=== PATIENT | male | born 1980 | race Two or more races ===

== ENCOUNTER 2019-03-26 16:10 | Emergency (ER) | payer MEDICAID ==
[~2019-03-26] VITALS: Ht 177.8 cm; Wt 108.9 kg
[2019-03-26 16:17] VITALS: BP 134/88
--- NOTE | 2019-03-26 16:20 | NUR ---
ED Nurse Note: Patient walked into ED c/o laceration on the left forearm that happened 1 hour prior to arrival to ED, patient reports he got laceration by an electrical wire cable. bleeding is controlled. patient reports pain 5/10. patient is alert awake x4 ambulatory, breathing unlabored and even, speaking in full sentences.
[2019-03-26] MEDS ORDERED: Tetanus/Diptheria/Pertussis IM ONE (16:30)
[2019-03-26] MEDS ORDERED: CEPHALEXIN500 MG ORAL (16:52)
[2019-03-26] MEDS ORDERED: IBU800 MG PO (16:52)
--- NOTE | 2019-03-26 16:52 | Emergency Room Report ---
History of Present Illness General Chief Complaint: Laceration Source: Patient (Sue Jarquin) Present Illness HPI 38-year-old male with no symptom past medical history here complaining of a laceration on left forearm that happened today as he was working with [employer] wire. Patient reports that he got a cut from the electric wire. Reports that there was no foreign body when the incident occurred. Is able to flex and extend his forearm. Has full range of motion's. Denies any motor or sensory deficits. No signs of motor or sensory deficits noted. Denies all other injuries, reports that he is not up-to-date with his tetanus shot. Minimal bleeding noted however a deep laceration noted on the left palmar side of forearm. Denies chest pain, shortness of breath, fever and chills, abdominal pain, nausea vomiting, no other associated symptoms. Has taken ibuprofen for symptom relief. (Sue Jarquin) Allergies: Coded Allergies: No Known Allergies (Unverified , 03/26/19) Patient History Past Medical History: see triage record Past Surgical History: unable to obtain Pertinent Family History: none Immunizations: other - Tdap given today Reviewed Nursing Documentation: PMH: Agreed; PSxH: Agreed (Sue Jarquin) Nursing Documentation-PMH Past Medical History: No Stated History (Sue Jarquin) Review of Systems All Other Systems: negative except mentioned in HPI (Sue Jarquin) Physical Exam Vital Signs Date Time Temp Pulse Resp B/P (MAP) Pulse Ox O2 Delivery O2 Flow Rate FiO2 03/26/19 16:17 98.2 98 18 134/88 (103) 99 Room Air Sp02 EP Interpretation: reviewed, normal General Appearance: no apparent distress, alert, GCS 15, non-toxic Head: normocephalic, atraumatic Eyes: bilateral eye normal inspection, bilateral eye PERRL ENT: hearing grossly normal, normal pharynx, no angioedema, normal voice Neck: full range of motion, supple/symm/no masses Respiratory: chest non-tender, lungs clear, normal breath sounds, no rhonchi, no wheezing, speaking full sentences Cardiovascular #1: regular rate, rhythm, no edema, no murmur Cardiovascular #2: 2+ radial (R), 2+ radial (L) Gastrointestinal: normal bowel sounds, non tender, soft, non-distended, no guarding, no rebound Rectal: deferred Genitourinary: no CVA tenderness Musculoskeletal: back normal, digits/nails normal, gait/station normal, non- tender, no calf tenderness, pelvis stable Neurologic: alert, oriented x3, responsive, motor strength/tone normal, sensory intact, speech normal Psychiatric: normal inspection, judgement/insight normal Skin: laceration - Deep laceration into the muscle left forearm on the palmar side Lymphatic: normal inspection, no adenopathy (Sue Jarquin) Procedures Laceration/Wound Repair Laceration/Wound Repair : Consent: Verbal Wound Location: upper extremity - Left forearm Wound's Depth, Shape: into muscle Wound Length (cm): 2 Wound Explored: contaminated Irrigated w/ Saline (ccs): 10 Betadine Prep?: No Anesthesia: Lidocaine w/ Epi Volume Anesthetic (ccs): 7 Wound Repaired With: sutures Suture Size/Type: 4:0, proline Number of Sutures: 10 Layer Closure?: Yes Sterile Dressing Applied?: Yes Splint Applied?: No Sling Applied?: No Patient Tolerated: Well Complications: None (Sue Jarquin) Medical Decision Making PA Attestation All diagnoses and treatment plans were reviewed and discussed with my supervising physician Dr. Nogueira (Sue Jarquin) Diagnostic Impression: Primary Impression: Laceration of forearm without foreign body ER Course 38-year-old male with no symptom past medical history here complaining of a laceration on left forearm that happened today as he was working with [employer] wire. Patient reports that he got a cut from the electric wire. Reports that there was no foreign body when the incident occurred. Is able to flex and extend his forearm. Has full range of motion's. Denies any motor or sensory deficits. No signs of motor or sensory deficits noted. Denies all other injuries, reports that he is not up-to-date with his tetanus shot. Minimal bleeding noted however a deep laceration noted on the left palmar side of forearm. Denies chest pain, shortness of breath, fever and chills, abdominal pain, nausea vomiting, no other associated symptoms. Has taken ibuprofen for symptom relief. Ddx considered but are not limited to : Superficial laceration, deep laceration , tendon involvement with laceration, laceration with foreign body Vital signs: are WNL, pt. is afebrile H&PE are most consistent with: Deep laceration left forearm ORDERS: Left forearm x-ray, Keflex, ibuprofen ED INTERVENTIONS: Wound closure, Tdap DISCHARGE: At this time pt. is stable for d/c to home. Will provide printed patient care instructions, and any necessary prescriptions. Care plan and follow up instructions have been discussed with the patient prior to discharge. Sutures in days. If worsening symptoms return to emergency room sooner. (Sue Jarquin) Other X-Ray Diagnostic Results Other X-Ray Diagnostic Results : X-Ray ordered: Left forearm # of Views/Limited Vs Complete: 2 View Indication: Pain EP Interpretation: Yes PA Xray: Interpretation reviewed, by supervising MD, and agrees with findings. Interpretation: no dislocation, no soft tissue swelling, no fractures, other - No foreign body Impression: No acute disease Electronically Signed by: Sue Lopez PA-C (Sue Jarquin) Other X-Ray Diagnostic Results : Electronically Signed by: Delvin Gallegos documentation of Xray reviewed by me and is accurate, Joe Nogueira MD (Joe Nogueira MD) Last Vital Signs Date Time Temp Pulse Resp B/P (MAP) Pulse Ox O2 Delivery O2 Flow Rate FiO2 03/26/19 16:17 98.2 98 18 134/88 (103) 99 Room Air (Sue Jarquin) Disposition: HOME, SELF-CARE Condition: Stable Scripts Ibuprofen (Ibu) 800 Mg Tablet 800 MG PO TID, #21 TAB Prov: Sue Jarquin 03/26/19 Cephalexin* (KEFLEX*) 500 Mg Capsule 500 MG ORAL EVERY 6 HOURS for 7 Days, #28 CAP Prov: Sue Jarquin 03/26/19 Patient Instructions: Laceration Care, Adult Additional Instructions: Take medication as directed, follow-up with your primary care provider, sutures to be removed in 7 to 10 days. If worsening symptoms return to the emergency room. Sue Jarquin Mar 26, 2019 16:51 Joe Nogueira MD Mar 27, 2019 01:21
[2019-03-26 17:34] VITALS: BP 134/88
--- NOTE | 2019-03-26 17:34 | NUR ---
ER DISCHARGE NOTE: Patient is cleared to be discharged per BONNIE NOLAN, pt is aox4, on room air, with stable vital signs. pt was given dc and prescription instructions, pt was able to verbalize understanding, pt id band removed without complications. pt is able to ambulate with steady gait. pt took all belongings.
--- NOTE | 2019-03-27 09:57 | Diagnostic Imaging Report ---
INDICATION: Laceration, foreign body TECHNIQUE: XRAY Forearm 2v L Multiple views of the None were obtained COMPARISON: None FINDINGS: There is no acute fracture or dislocation. Joint spaces are maintained. Mild soft tissue swelling of the forearm. No radiopaque foreign body identified. IMPRESSION: No acute fracture, dislocation, or radiopaque foreign body.
== END 2019-03-26 17:34 | disposition home or self-care (01) ==
LOC: EMR 16:30
DX: S51.812A Laceration without foreign body of left forearm, initial encounter (principal); Z23 Encounter for immunization; W45.8XXA Other foreign body or object entering through skin, initial encounter; Y92.9 Unspecified place or not applicable
CPT/HCPCS: 12031; 73090; 90471; 90715; Z7502; 99283

== ENCOUNTER 2019-04-04 21:01 | Emergency (ER) | payer MEDICAID ==
[~2019-04-04] VITALS: Ht 180.3 cm; Wt 108.9 kg
[~2019-04-04 21:01] MED LIST: CEPHALEXIN500 MG ORAL; IBU800 MG PO
[2019-04-04] MEDS ORDERED: NKM (21:08)
[2019-04-04 21:10] VITALS: BP 130/86
--- NOTE | 2019-04-04 21:10 | NUR ---
ED Nurse Note: pt walked in to ED for suture removal to left forearm area. pt states that he had stiches put in 10 days ago. pt is alert x4.
--- NOTE | 2019-04-04 21:15 | NUR ---
ED Nurse Note: ERMD at bedside removing stitches for pt
[2019-04-04 21:25] VITALS: BP 136/79
--- NOTE | 2019-04-04 21:25 | NUR ---
ER DISCHARGE NOTE: Patient is cleared to be discharged per ERMD, pt is aox4, on room air, with stable vital signs. pt was given dc instructions, pt was able to verbalize understanding, pt id band removed without complications. pt is able to ambulate with steady gait. pt took all belongings.
--- NOTE | 2019-04-04 21:28 | Emergency Room Report ---
History of Present Illness General Chief Complaint: Wound Recheck/Suture Removal Source: Patient Present Illness HPI Patient presents with recheck of his left forearm laceration this happened last week Reports that 1 of the sutures fell out several days ago Denies any fevers denies any chills denies any redness or swelling Allergies: Coded Allergies: No Known Allergies (Unverified , 03/26/19) Patient History Past Medical History: see triage record Reviewed Nursing Documentation: PMH: Agreed; PSxH: Agreed Nursing Documentation-PMH Past Medical History: No Stated History Review of Systems All Other Systems: negative except mentioned in HPI Physical Exam Vital Signs Date Time Temp Pulse Resp B/P (MAP) Pulse Ox O2 Delivery O2 Flow Rate FiO2 04/04/19 21:05 98.1 79 18 138/86 (103) 95 Room Air Sp02 EP Interpretation: reviewed, normal General Appearance: well appearing, no apparent distress Head: normocephalic, atraumatic Eyes: bilateral eye PERRL, bilateral eye EOMI ENT: normal pharynx Respiratory: no respiratory distress, no retraction Musculoskeletal: normal inspection - Full flexion extension intact Neurologic: alert, oriented x3 Skin: other - Sutures are in place in the left forearm at the site of the laceration, starting proximally the second suture from the top does appear to have come out and there is a small dehiscence at that site other sutures are in place Lymphatic: no adenopathy Procedures Laceration/Wound Repair Laceration/Wound Repair : Consent: Verbal Wound Location: upper extremity Wound Length (cm): 2 Wound Explored: clean Betadine Prep?: No Wound Repaired With: Steri-strips Number of Sutures: 1 Layer Closure?: No Progress One suture from the proximal and one suture from the distal aspect of the laceration removed without any complications, one Steri-Strip was applied over the dehisced area and the other sutures are left in place for further healing Medical Decision Making Diagnostic Impression: Primary Impression: Encounter for wound re-check Additional Impression: Dehiscence of closure of skin ER Course Given the history and presentation the area is cleansed and prepped one suture from the top and one suture from the lower aspect is removed patient also had Steri-Strip applied over the dehisced region The other sutures require further healing as removal will likely lead to further dehiscence Patient will require repeat check in the next several days Last Vital Signs Date Time Temp Pulse Resp B/P (MAP) Pulse Ox O2 Delivery O2 Flow Rate FiO2 04/04/19 21:10 98.0 86 18 130/86 97 Room Air Disposition: HOME, SELF-CARE Condition: Improved Referrals: [facility] Patient Instructions: Wound Check, Wound Dehiscence, [id number] Additional Instructions: It appears that 1 of the sutures had opened earlier. As he reported this was several days ago, and that area there is a small dehiscence. 2 sutures were removed however the rest are not ready to be removed as of yet Patient is provided with the discharge instructions notified to follow up with primary doctor in the next 2-3 days otherwise return to the er with any worsening symptoms. Please note that this report is being documented using [email or web address] technology. This can lead to erroneous entry secondary to incorrect interpretation by the dictating instrument. Keena Helm DO Apr 04, 2019 21:28
== END 2019-04-04 21:25 | disposition home or self-care (01) ==
LOC: EMR 21:15
DX: T81.30XA Disruption of wound, unspecified, initial encounter (principal); X58.XXXA Exposure to other specified factors, initial encounter; Y92.9 Unspecified place or not applicable
CPT/HCPCS: 99282